=== PATIENT | male | born 1990 | race Caucasian/White ===

== ENCOUNTER 2016-07-29 22:42 | Emergency (ER) | payer SELFPAY ==
[~2016-07-29] VITALS: Ht 170.2 cm; Wt 80.0 kg
[~2016-07-29 22:42] MED LIST: AMOX500T PO; Z.0.NO CURRENT MEDS
[2016-07-29 23:14] VITALS: BP 123/83; PULSE 93; RESP 16; TEMP 98.4; O2SAT 96
[2016-07-29] MEDS ORDERED: SODIUM CHLOR 0.9% 1000 ML INJ 1,000 ML IV ONE (23:53)
[2016-07-30] MEDS ORDERED: SODIUM CHLORIDE 0.9% FLUSH 10 ML FLUSH IVF PRN
--- NOTE | 2016-07-30 00:17 | PD ---
HPI Chief Complaint: Syncope/Near-Syncope Time Seen by Provider: 00:05 Travel History International Travel<30 days: No Contact w/Intl Traveler<30days: No Traveled to known affect area: No History of Present Illness HPI 26-year-old male here with complaint of blood. Patient was at work he states he became overheated, felt lightheaded and nauseous and had a brief syncopal episode. No chest pain, shortness of breath, palpitations. Patient has felt well in the interim. Patient had a weeks long flulike symptoms but those have since resolved and he is now back to eating and drinking normally. No recent fevers or chills. No family history of prolonged QT syndrome, WPW, Brugada. PFSH Past Medical History Medical History: Denies Significant Hx Diminished Hearing: No Influenza Vaccination: No Past Surgical History Surgical History: No Previous Surgery Social History Alcohol Use: No Tobacco Use: No Substance Use: Yes (Marijuana) Allergies-Medications (Allergen,Severity, Reaction): Coded Allergies: No Known Allergies (Verified , 09/30/08) Reported Meds & Prescriptions Reported Meds & Active Scripts Active No Active Prescriptions or Reported Medications Review of Systems Except as stated in HPI: all other systems reviewed are Neg Physical Exam Narrative GENERAL: Well Appearing male in no acute distress SKIN: Focused skin assessment warm/dry. HEAD: Normocephalic. EYES: No scleral icterus. No injection or drainage. ENT: No nasal bleeding or discharge. Mucous membranes pink and moist. NECK: Supple CARDIOVASCULAR: Regular rate and rhythm. No murmur appreciated. RESPIRATORY: No accessory muscle use. Clear to auscultation. Breath sounds equal bilaterally. GASTROINTESTINAL: Abdomen soft, non-tender, nondistended. MUSCULOSKELETAL: Moves All extremities normally NEUROLOGICAL: Awake and alert. No obvious cranial nerve deficits. Motor grossly within normal limits. Normal speech. PSYCHIATRIC: Appropriate mood and affect; insight and judgment normal. Data Data Last Documented VS Vital Signs Date Time Temp Pulse Resp B/P Pulse Ox O2 Delivery O2 Flow Rate FiO2 07/30/16 01:03 17 97 Room Air 07/30/16 01:03 78 121/59 07/29/16 23:14 98.4 Orders Electrocardiogram (07/29/16 23:53) Basic Metabolic Panel (Bmp) (07/29/16 23:53) Complete Blood Count With Diff (07/29/16 23:53) Magnesium (Mg) (07/29/16 23:53) Ecg Monitoring (07/29/16 23:53) Iv Access Insert/Monitor (07/29/16 23:53) Oximetry (07/29/16 23:53) Sodium Chloride 0.9% Flush (Ns Flush) (07/30/16 00:00) Sodium Chlor 0.9% 1000 Ml Inj (Ns 1000 M (07/29/16 23:53) Labs Laboratory Tests Test 07/30/16 00:12 White Blood Count 7.6 TH/MM3 Red Blood Count 4.36 MIL/MM3 Hemoglobin 13.4 GM/DL Hematocrit 38.0 % Mean Corpuscular Volume 87.0 FL Mean Corpuscular Hemoglobin 30.8 PG Mean Corpuscular Hemoglobin 35.3 % Concent Red Cell Distribution Width 13.1 % Platelet Count 230 TH/MM3 Mean Platelet Volume 8.6 FL Neutrophils (%) (Auto) 55.8 % Lymphocytes (%) (Auto) 35.8 % Monocytes (%) (Auto) 7.8 % Eosinophils (%) (Auto) 0.4 % Basophils (%) (Auto) 0.2 % Neutrophils # (Auto) 4.3 TH/MM3 Lymphocytes # (Auto) 2.7 TH/MM3 Monocytes # (Auto) 0.6 TH/MM3 Eosinophils # (Auto) 0.0 TH/MM3 Basophils # (Auto) 0.0 TH/MM3 CBC Comment DIFF FINAL Differential Comment Sodium Level 140 MEQ/L Potassium Level 3.9 MEQ/L Chloride Level 105 MEQ/L Carbon Dioxide Level 27.9 MEQ/L Anion Gap 7 MEQ/L Blood Urea Nitrogen 15 MG/DL Creatinine 0.97 MG/DL Estimat Glomerular Filtration 94 ML/MIN Rate Random Glucose 81 MG/DL Calcium Level 8.6 MG/DL Magnesium Level 2.1 MG/DL [facility] Medical Decision Making Medical Screen Exam Complete: Yes Emergency Medical Condition: Yes Medical Record Reviewed: Yes Differential Diagnosis 26-year-old male here after brief syncopal episode. Differential includes vasovagal, dehydration, electrolyte abnormality, arrhythmia, symptomatic anemia. Narrative Course Patient placed on monitor, IV established and blood obtained. Twelve-lead EKG shows sinus rhythm without notable ST or T-wave abnormalities and normal intervals. CBC, BMP, magnesium were obtained and unremarkable. Patient felt improved and will be discharged home. Diagnosis Primary Impression: Syncope Qualified Code: R55 - Syncope, unspecified syncope type Referrals: Primary Care Physician as needed Patient Instructions: General Instructions, Syncope (ED) Additional Instructions: Drink plenty of fluids. Follow-up with primary care provider symptoms persist and return to the ER for the warning signs discussed. Med/Other Pt SpecificInfo: No Change to Meds Scripts No Active Prescriptions or Reported Meds Disposition: 01 DISCHARGE HOME Condition: Stable Amrita Pratt MD Jul 30, 2016 00:17
[2016-07-30 00:50] LABS: AUTOMATED NEUTROPHIL # 4.3 TH/MM3 (1.8-7.7); BASOPHIL % 0.2 % (0.0-2.0); EOSINOPHIL % 0.4 % (0.0-4.0); HEMO FLAGS DIFF FINAL; LYMPH % 35.8 % (9.0-44.0); LYMPHOCYTE # 2.7 TH/MM3 (1.0-4.8); MEAN CORPUSCULAR HEMOGLOBIN 30.8 PG (27.0-34.0); MEAN CORPUSCULAR HGB CONC 35.3 % (32.0-36.0); MONO % 7.8 % (0.0-8.0); NEUT % 55.8 % (16.0-70.0); PLATELET COUNT 230 TH/MM3 (150-450); RED BLOOD COUNT 4.36 MIL/MM3 (4.50-5.90); RED CELL DISTRIBUTION WIDTH 13.1 % (11.6-17.2); WHITE BLOOD COUNT 7.6 TH/MM3 (4.0-11.0)
[2016-07-30 01:03] VITALS: BP 121/59; PULSE 78; RESP 17; RESP 21; O2SAT 97
[2016-07-30 01:11] LABS: BICARBONATE 27.9 MEQ/L (21.0-32.0); MAGNESIUM 2.1 MG/DL (1.5-2.5)
[2016-07-30 01:12] LABS: POTASSIUM 3.9 MEQ/L (3.5-5.1)
--- NOTE | 2016-07-30 10:34 | EKG ---
Date Performed: 07/30/2016 Time Performed: 00:10:25 PTAGE: 26 years EKG: Sinus rhythm WITH SHORT CO INTERVAL POSSIBLE RIGHT VENTRICULAR CONDUCTION DELAY BORDERLINE ECG NO PREVIOUS TRACING DOCTOR: Sterling Sahu Interpretating Date/Time 07/30/2016 10:32:40
== END 2016-07-30 01:32 | disposition home or self-care (01) ==
LOC: NEPE 22:42
DX: R55 Syncope and collapse (principal)
CPT/HCPCS: 80048; 83735; 85025; 93005; 96360; 99284; J7030